=== PATIENT | male | born 1970 | race African-American/Black ===

== ENCOUNTER 2016-11-16 07:09 | Observation (INO) | payer OTHER ==
[2016-11-16] MEDS ORDERED: ASPIRIN 325 MG TABLET PO ONE (07:11)
[2016-11-16 07:28] LABS: BASOPHILS % 0.4 (0.0-1.5); EOSINOPHILS % 2.1 % (0.0-6.8); LYMPHOCYTES # 1.4 # k/uL (0.6-4.0); MONOCYTES # 0.4 # k/uL (0.0-0.9); MONOCYTES % 7.6 % (0.0-11.0); NEUTROPHILS # 3.1 # k/uL (1.4-7.7)
--- NOTE | 2016-11-16 07:29 | ED Physician Documentation ---
Chest Pain - HISTORIAN Historian: patient - HPI Chief Complaint: Chest Pain Additional Information: 46 yo M here for chest discomfort. States he has had SOB off and on for the last few days at work, woke up with central/L chest discomfort this morning, approximately 0630. Pain is described as ache without radiation, not worse with exertion. He has had chills but no fever to his knowledge. He has had a mild cough. No n/v diaphoresis. He is a diabetic, takes pills. No HTN/HLP, self cardiac history. He is a non smoker. His father had heart disease at "a young age." Pain on arrival is described as mild, maybe 1-2/10 and max was 3-4/10. All other systems reviewed and negative except per HPI. Timing: gradual onset Duration: constant Last known Well Date: 11/16/16 Last Known Well Time: 06:00 Severity: mild - ROS CONST: none MS/LYMPH: none GI/: none EYES/ENT: none SKIN/ENDO: none NEURO/PSYCH: none Comment: chest pain - PAST HX MD risk factors: diabetes Type 2 DVT/PE Risk Factors: none TAD/AAA risk factors: none Neuro deficit: none GI disease: none Lung disease: none Surgeries/Procedures: none Allergies/Adverse Reactions: Allergies Allergy/AdvReac Type Severity Reaction Status Date / Time No Known Drug Allergies Allergy Verified 11/16/16 07:32 - SOCIAL HX Smoking History: non-smoker Alcohol Use: none Drug Use: none - FAMILY HX Family HX: CAD under 55 - REVIEWED ASSESSMENTS Nursing Assessment Reviewed: Yes Vitals Reviewed: Yes ED Results Lab/Radiology - Radiology Radiology Impressions: EKG: NSR 71bpm, normal axis, normal intervals. No ST changes, no ectopy. 2v CXR: neg - Orders Orders: ED Orders Category Date Time Status CHEST 2 VIEW [CHEST P.A.&LAT 2 VIEWS] [RAD] Stat Exams 11/16/16 Ordered BMP [BMP] Routine Lab 11/16/16 07:25 Received CBC/PLATELET/DIFF Stat Lab 11/16/16 07:25 Received TROPONIN I (cTnI) Stat Lab 11/16/16 07:25 Received Aspirin Med 11/16/16 07:11 Discontinued 325 mg PO NOW ONE EKG WITH COMPARISON Stat Ther 11/16/16 Ordered Chest Pain Physical Exam - EXAM General Appearance: no acute distress EENT: ENT inspection normal, pharynx normal Neck: nml inspection. No: JVD present, lymphadenopathy Respiratory: no resp. distress, chest non-tender, nml breath sounds CVS: reg. rate & rhythm, no murmur, pulses equal Abdomen: soft, no organomegaly, normal bowel sounds, no distension, non-tender Skin: warm/dry, normal color Extremities: non-tender, no evidence of injury Neuro: oriented X3 Discharge Clincal Impression: Shortness of breath Chest pain Qualifiers: Chest pain type: unspecified Qualified Code(s): R07.9 - Chest pain, unspecified Comments: EKG no ischemia, trop and other labs neg. CXR normal. Given ASA on arrival, single sl nitro. Pain relieved with nitro x1. No recurrence of pain. Admitted for cardiac rule out. Condition: Good Disposition: ADMITTED INPATIENT Decision to Admit: [id number] Decision Time: 09:20
[2016-11-16 07:44] LABS: eGFR (African) > 60; eGFR (Non-African) > 60
[2016-11-16] MEDS ORDERED: NITROGLYCERIN 0.4 MG TAB.SUBL SL ONE (07:47)
[2016-11-16] MEDS ORDERED: NITROGLYCERIN 0.4 MG TAB.SUBL SL PRN (09:26)
[2016-11-16] MEDS: ENOXAPARIN SODIUM 30 MG/0.3 ML DISP.SYRIN SQ SCH ×2 (12:32→20:52)
[2016-11-16 13:02] VITALS: BMI 89.6
--- NOTE | 2016-11-16 14:32 | Diagnostic Imaging Report ---
JHONY SOUSA [facility] [address] [facility] [address] [address] Report Submission Date: Nov 16, 2016 7:43:39 AM SPOTLIGHT OPERATOR Patient Study Name: BRET SCHREIBER Date: Nov 16, 2016 7:24:05 AM SPOTLIGHT OPERATOR Modality Type: CR Gender: M Description: CHEST : 66 Institution: [facility] Physician: JHONY SOUSA HISTORY: 46-year-old male with chest pain COMPARISON: None available. TECHNIQUE: 2 views of the chest were performed. FINDINGS: No pneumothorax, consolidative infiltrates, pleural effusions, or pulmonary edema. The heart is not enlarged. IMPRESSION: No acute intrathoracic process identified. Electronically signed on Nov 16, 2016 7:43:39 AM SPOTLIGHT OPERATOR by: Nic JOVEL
--- NOTE | 2016-11-16 18:36 | History and Physical Report ---
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 He was seen in the ER and given a single nitroglycerin, and his chest pain has resolved. He has several risk factors for CAD including male sex, obesity, family history (father with ND in his 40s), diabetes and mild dyslipidemia (HDL of 32, LDL of 102, TG of 112). He does not smoke. He has no personal history of CAD and has never had any reason to have any testing for risk stratification done. He admits that he has been under quite a bit of stress having recently transferred from [facility] to [facility] where he says that work conditions are much more stressful and that he has personally felt quite a bit of stress. 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: Carpal Tunnel Syndrome Heme/Onc: Other (Vitamin D deficiency) Musculoskeletal: Osteoarthritis Endocrine: Diabetes, Other (obesity) - Past Surgical History Past Surgical History: Arthroscopy (left knee) - Past Social History Smoke: No Alcohol: Occassional Drugs: None Lives: With Family Domestic Violence: Negative - Health Maintenance Health Maintenance: Cholesterol Influenza Vaccine: Current for this Influenza Season Pneumonia Vaccine: Yes Resuscitation Status: Resusciation Status Resuscitation Status Full Code - Unable to Obtain History Unable to Obtain: No Review of Systems - Review of Systems Constitutional: negative: Fever, Chills, Sweats Eyes: negative: pain, vision change, conjunctivae inflammation ENT: negative: Ear Pain, Ear Discharge, Nose Pain Respiratory: negative: Cough, Dry, Shortness of Breath Cardiovascular: Chest Pain (as described in HPI) Gastrointestinal: negative: Nausea, Vomiting Genitourinary: negative: Dysuria, Frequency Musculoskeletal: negative: Neck Pain, Shoulder Pain, Arm Pain Skin: negative: Rash, Lesions Neurological: negative: Weakness, Numbness, Incoordination, Change in Speech - Medications/Allergies Allergies/Adverse Reactions: Allergies Allergy/AdvReac Type Severity Reaction Status Date / Time No Known Drug Allergies Allergy Verified 11/16/16 07:32 Current Inpatient Medications: Current Inpatient Medications Aspirin (Aspirin) 81 mg PO DAILY ONE Stop: 11/17/16 07:01 Enoxaparin Sodium (Lovenox) 30 mg SQ Q12H [facility] Stop: 11/22/16 23:00 Last Admin: 11/16/16 12:32 Dose: 30 mg Glimepiride (Amaryl) 2 mg PO DAILY [facility] Exam - Exam Vital Signs: Vital Signs (72 hours) 11/16/16 11/16/16 11/16/16 10:36 10:59 14:00 Temperature 97.5 F L 97.5 F L 98.4 F Pulse Rate [ 72 72 87 Left Pulse ox] Respiratory 16 16 18 Rate Blood Pressure 121/72 121/72 150/74 [Left Arm] O2 Sat by Pulse 97 97 98 Oximetry General: Alert, Oriented to Person, Oriented to Place, Oriented to Time, Obese HEENT: Atraumatic, PERRLA, EOMI, Mouth Mucous membr. moist/Arboles, Nose Mucous membr. moist/Arboles, Anicteric Sclerae. No: Photophobia, Ptosis Neck: No: Stridor Lungs: Clear to auscultation, Normal air movement, Speaks full Sentences, Respiratory Distress. No: Wheezes, Rales, Rhonchi Cardiovascular: Regular rate, Normal S1, Normal S2 Murmur: No: Systolic Murmur Abdomen: Normal bowel sounds, No tenderness, No masses Genitourinary: No: Right Inguinal Hernia, Left Inguinal Lymph Male Genitourinary: No: Scrotal Edema Female Genitourinary: No: Other Integumentary: Normal, Warm, Dry Extremities: No clubbing, No cyanosis, No edema Neurological: Normal gait, Normal speech, Strength Equal Bilat, Normal tone Psych/Mental Status: Mental status NL - Laboratory Results Laboratory Results: Laboratory Results 11/16/16 12:45 Troponin I < 0.03 L Assessment/Plan - Assessment/Plan (1) Chest pain Status: Acute Current Visit: Yes Qualifiers: Chest pain type: unspecified Qualified Code(s): R07.9 - Chest pain, unspecified Assessment: Resolved Plan: Continue serial cardiac enzymes Cardiology consult in the am (2) Shortness of breath Status: Acute Current Visit: Yes Assessment: Improved VTE Assessment - RISK FACTOR SCORE VTE RISK FACTOR SCORES: AGE 40-60 YEARS, OBESITY - RISK VTE MODERATE RISK: SCORE OF 2 (RISK PROXIMAL DVT 2-4%) PROPHYAXIS NEEDED (Will hold anticoagulation due to being in bed less than 24 hours)
[2016-11-16] MEDS: ACETAMINOPHEN 325 MG TABLET PO PRN (21:22)
[2016-11-17] MEDS ORDERED: ASPIRIN 81 MG CHEW TAB ONE ×2 (04:55→06:03)
[2016-11-17] MEDS ORDERED: ASPIRIN 325 MG TABLET PO ONE (07:00)
[2016-11-17 07:12] LABS: BASOPHILS % 0.5 (0.0-1.5); EOSINOPHILS % 1.4 % (0.0-6.8); LYMPHOCYTES # 1.4 # k/uL (0.6-4.0); MEAN CORPUSCULAR HEMOGLOBIN 28.1 pg (28.0-34.0); MONOCYTES # 0.5 # k/uL (0.0-0.9); MONOCYTES % 9.4 % (0.0-11.0); NEUTROPHILS # 2.9 # k/uL (1.4-7.7)
--- NOTE | 2016-11-17 08:04 | Inpatient Progress Note ---
Subjective - Required Recertification Statement I anticipate X number of days because-include discharge plan: 1 - Review of Systems Events since last encounter: Patient awoke yesterday with some substernal achy chest pain. No radiation of the pain. No precipitating or modifying factors noted. Pain lasted about 3 hours. Pain went away after getting one sl NTG. Has not had any previous episodes of chest pain. Patient states that he has developed a mild cold. is having some nasal congestion and drainage. No fever or chills. does have a mild nonproductive cough. Has been under a lot of stress recently. Feels that he might be having some depression problems. Has been having some increase fatigue and loss of interest in things, Denies any suicidal thoughts. Diabetes is stable. No hypo or hyperglycemic episodes. Pulmonary: Cough. Denies: Dyspnea, Pleuritic Chest Pain Cardiovascular: Denies: Chest Pain, Palpitations Gastrointestinal: Denies: Nausea, Vomiting, Abdominal Pain Objective - Exam Vitals and I&O: Vital Signs Temp 98.0 F 11/17/16 06:00 Pulse 79 11/17/16 06:00 Resp 20 11/17/16 06:00 BP 173/85 11/17/16 06:00 Pulse Ox 96 11/17/16 06:00 Intake & Output 11/16/16 11/16/16 11/17/16 11:59 23:59 11:59 Intake Total 1080 Output Total 450 Balance 630 Weight 300 kg Intake: IV 0 Right Hand 0 Oral 1080 Output: Urine 450 Other: Voiding Method Toilet # Voids 1 1 # Bowel Movements 1 General: Alert, Oriented to Person, Oriented to Place, Oriented to Time, Cooperative, No acute distress HEENT: Mouth Mucous membr. moist/Olivette. No: Pharyngeal Erythema Neck: Supple, No JVD Lungs: Clear to auscultation, Normal air movement, Speaks full Sentences. No: Wheezes, Rales, Rhonchi Cardiovascular: Regular rate, Normal S1, Normal S2, No murmurs. No: Gallops Abdomen: Normal bowel sounds, Soft, No tenderness - Results Results: Laboratory Results WBC 5.10 K/ul (4.00-12.00) 11/17/16 06:20 RBC 4.99 M/ul (3.90-5.20) 11/17/16 06:20 Hgb 14.0 g/dL (12.0-18.0) 11/17/16 06:20 Hct 42.0 % (37.0-53.0) 11/17/16 06:20 MCV 84.1 fl (80.0-100.0) 11/17/16 06:20 MCH 28.1 pg (28.0-34.0) 11/17/16 06:20 MCHC 33.3 g/dL (30.0-36.0) 11/17/16 06:20 RDW 13.7 % (11.3-14.3) 11/17/16 06:20 Plt Count 155 K/mm3 (130-400) 11/17/16 06:20 Neut % (Auto) 56.6 % (39.0-79.0) 11/17/16 06:20 Lymph % (Auto) 28.2 % (16.0-50.0) 11/17/16 06:20 Morgan % (Auto) 9.4 % (0.0-11.0) 11/17/16 06:20 Eos % (Auto) 1.4 % (0.0-6.8) 11/17/16 06:20 Baso % (Auto) 0.5 (0.0-1.5) 11/17/16 06:20 Neut # 2.9 # k/uL (1.4-7.7) 11/17/16 06:20 Lymph # 1.4 # k/uL (0.6-4.0) 11/17/16 06:20 Morgan # 0.5 # k/uL (0.0-0.9) 11/17/16 06:20 Eos # 0.1 # k/uL (0.0-0.6) 11/17/16 06:20 Baso # 0.0 # k/uL (0.0-0.5) 11/17/16 06:20 Reactive Lymphs % 3.9 % (0.0-5.0) 11/17/16 06:20 Reactive Lymphs # 0.2 # k/uL (0.0-0.8) 11/17/16 06:20 Sodium 139 mmol/L (136-145) 11/16/16 07:25 Potassium 3.4 mmol/L (3.5-5.0) L 11/16/16 07:25 Chloride 99 mmol/L (98-110) 11/16/16 07:25 Carbon Dioxide 30 mmol/L (20-32) 11/16/16 07:25 BUN 17 mg/dL (10-26) 11/16/16 07:25 Creatinine 1.1 mg/dL (0.4-1.5) 11/16/16 07:25 Estimated Creat Clear 160 11/16/16 07:25 Est GFR ( Amer) > 60 (60-) 11/16/16 07:25 Est GFR (Non-Af Amer) > 60 (60-) 11/16/16 07:25 Glucose 110 mg/dL (70-99) H 11/16/16 07:25 Calcium 9.5 mg/dL (8.5-10.5) 11/16/16 07:25 Troponin I < 0.03 ng/mL (0.03-0.06) L 11/17/16 06:20 Assessment/Plan - Assessment/Plan (1) Upper respiratory infection Status: Acute Current Visit: Yes Qualifiers: URI type: unspecified viral URI Qualified Code(s): J06.9 - Acute upper respiratory infection, unspecified; B97.89 - Other viral agents as the cause of diseases classified elsewhere Assessment: Will start Robitussin (2) Chest pain Status: Acute Current Visit: Yes Qualifiers: Chest pain type: unspecified Qualified Code(s): R07.9 - Chest pain, unspecified Assessment: stable, will try to get a cardiac stress ECHO and cardiac consult.
[2016-11-17] MEDS ORDERED: GLIMEPIRIDE 2 MG TABLET PO SCH (09:00)
[2016-11-17] MEDS: ENOXAPARIN SODIUM 30 MG/0.3 ML DISP.SYRIN SQ SCH (12:18)
[2016-11-17] MEDS: ACETAMINOPHEN 325 MG TABLET PO PRN (13:38)
[2016-11-17 13:50] VITALS: BP 148/78
[2016-11-17] MEDS ORDERED: ASPIRIN EC 81 MG TABLET.DR PO SCH (15:00)
[2016-11-17] MEDS ORDERED: LORATADINE 10 MG TABLET PO ONE ×2 (15:11→15:46)
--- NOTE | 2016-11-17 15:13 | Discharge Summary ---
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 He was seen in the ER and given a single nitroglycerin, and his chest pain has resolved. He has several risk factors for CAD including male sex, obesity, family history (father with SC in his 40s), diabetes and mild dyslipidemia (HDL of 32, LDL of 102, TG of 112). He does not smoke. He has no personal history of CAD and has never had any reason to have any testing for risk stratification done. He admits that he has been under quite a bit of stress having recently transferred from [facility] to [facility] where he says that work conditions are much more stressful and that he has personally felt quite a bit of stress. Condition at Discharge: Stable Home Medications: Ambulatory Orders Medication Instructions Recorded Aspirin EC [Ecotrin] 81 mg PO DAILY tablet. 11/17/16 Azithromycin [Zithromax] 250 mg PO DIRECTED #6 tablet 11/17/16 Glimepiride [Amaryl] 2 mg PO DAILY tablet 11/17/16 Allergies/Adverse Reactions: Allergies Allergy/AdvReac Type Severity Reaction Status Date / Time No Known Drug Allergies Allergy Verified 11/16/16 07:32 Discharge Summary: Patient was admitted with some chest pain. Acute ischemic event ruled out. Serial EKGs and cardiac enzymes were negative. Patient did have some mild chest pain during the hospitalization. Resolved without any intervention. Patient was noted to have an elevated A1c consistent with developing DM. Patient was advised to try to decrease the sugar and carbohydrates in his diet. - Final Diagnosis (1) Upper respiratory infection Problems: Improved (2) Chest pain Problems: Will get a cardiac consultation
[2016-11-17] MEDS ORDERED: ASPIRIN EC 325 MG TABLET.DR ONE (15:32)
[2016-11-17] MEDS ORDERED: ASPIRIN EC 81 MG TABLET.DR ONE (15:35)
== END 2016-11-17 17:25 | disposition home or self-care (01) ==
LOC: ED 07:09 → SOUTH 10:12
PROVIDERS: ADMIT Family Medicine; ATTEND Family Medicine
DX: R07.9 Chest pain, unspecified (principal); J06.9 Acute upper respiratory infection, unspecified
CPT/HCPCS: 36415; 71020; 80048; 83036; 84484; 85025; 93005; A9270; G0378; J1650; S1016

== ENCOUNTER 2017-03-16 11:16 | Outpatient (CLI) | payer OTHER ==
[2017-03-16 11:59] LABS: eGFR (African) > 60; eGFR (Non-African) > 60
== END 2017-03-16 12:40 ==
LOC: LAB 11:16
PROVIDERS: ATTEND Physician Assistant
DX: E11.9 Type 2 diabetes mellitus without complications (principal); H53.9 Unspecified visual disturbance
CPT/HCPCS: 36415; 80053; 83036

== ENCOUNTER 2018-03-25 09:41 | Outpatient (CLI) | payer OTHER ==
[2018-03-25 10:23] LABS: eGFR (African) > 60; eGFR (Non-African) > 60
== END 2018-03-25 09:43 ==
LOC: LAB 09:41
PROVIDERS: ATTEND Physician Assistant
DX: E11.9 Type 2 diabetes mellitus without complications (principal); E78.5 Hyperlipidemia, unspecified; R07.9 Chest pain, unspecified
CPT/HCPCS: 36415; 80053; 80061; 83036; 84484

== ENCOUNTER 2018-05-20 13:43 | Outpatient (CLI) | payer OTHER ==
--- NOTE | 2018-05-20 19:45 | Diagnostic Imaging Report ---
MITCH TAYLOR [facility] [address] [facility] [address] [address] Report Submission Date: May 20, 2018 2:05:28 PM CDT Patient Study Name: BRET SCHREIBER Date: May 20, 2018 1:45:50 PM CDT Modality Type: DX Gender: M Description: SHOULDER : 66 Institution: [facility] Physician: MITCH TAYLOR Examination: Plain film right shoulder History: RT SHOULDER, PAIN IN RT SHOULDER AFTER LIFTING INJURY ON 04/27/18 (Hx) Comparison exams: None provided Findings: 3 views of the right shoulder demonstrate normal cortical margins. No evidence for fracture or dislocation. Mild acromioclavicular joint degenerative spurring. No soft tissue abnormality Impression: No acute osseous process. If suspect soft tissue injury, consider obtaining MRI to further evaluate. Electronically signed on May 20, 2018 2:05:28 PM CDT by: Everette JOVEL
== END 2018-05-20 14:25 ==
LOC: RAD 13:43
PROVIDERS: ATTEND Physician Assistant
DX: M25.511 Pain in right shoulder (principal)
CPT/HCPCS: 73030

== ENCOUNTER 2018-09-15 14:32 | Outpatient (CLI) | payer OTHER ==
[2018-09-15 15:23] LABS: MEAN CORPUSCULAR HEMOGLOBIN 26.4 pg (28.0-34.0)
[2018-09-15 15:24] LABS: BASOPHILS % 0.4 (0.0-1.5); EOSINOPHILS % 8.1 % (0.0-6.8); MONOCYTES % 4.7 % (0.0-11.0)
[2018-09-15 15:41] LABS: eGFR (Non-African) > 60
--- NOTE | 2018-09-16 05:38 | Diagnostic Imaging Report ---
MITCH TAYLOR [facility] [address] [facility] [address] [address] Report Submission Date: Sep 15, 2018 3:54:50 PM WINDLACE MACHINE OPERATOR Patient Study Name: BRET SCHREIBER Date: Sep 15, 2018 3:03:45 PM WINDLACE MACHINE OPERATOR Modality Type: DX Gender: M Description: CHEST : 66 Institution: [facility] Physician: MITCH TAYLOR Examination: PA and lateral chest. History: Evaluate lung crum. CHEST PAIN X WEEKS (Hx) Comparison exam: None provided. Findings: PA and lateral views of the chest demonstrates a normal cardiac and mediastinal silhouette. No focal infiltrate. No blunting of the costophrenic margins. Osseous structures are appropriate for age. Impression: No acute pulmonary process. Electronically signed on Sep 15, 2018 3:54:50 PM WINDLACE MACHINE OPERATOR by: Everette JOVEL
== END 2018-09-15 14:42 | disposition home or self-care (01) ==
LOC: RT 14:32
PROVIDERS: ATTEND Physician Assistant
DX: R07.9 Chest pain, unspecified (principal); R06.02 Shortness of breath
CPT/HCPCS: 36415; 71046; 80053; 84484; 85025

== ENCOUNTER 2019-02-09 14:10 | Outpatient (CLI) | payer OTHER ==
--- NOTE | 2019-02-09 18:14 | Diagnostic Imaging Report ---
AKIL HENSLEY [facility] [address] [facility] [address] [address] Report Submission Date: February 09, 2019 2:40:32 PM CDT Patient Study Name: BRET SCHREIBER Date: February 09, 2019 2:16:45 PM CDT Modality Type: DX Gender: M Description: ANKLE 3 VIEWS OR MORE : 66 Institution: [facility] Physician: AKIL HENSLEY EXAMINATION: ANKLE 3 VIEWS OR MORE HISTORY: LEFT ANKLE, PAIN IN LEFT ANKLE AFTER SPORTS INJURY ABOUT 2 WEEKS AGO. PT STATES WORST PAIN IN HEEL AREA COMPARISON: None FINDINGS: The osseous structures are intact and well aligned without acute fracture or dislocation. The joint spaces are preserved. Bone density is normal. No soft tissue swelling is seen. There is a posterior calcaneal spur. IMPRESSION: Calcaneal spur without acute fracture or dislocation identified. Electronically signed on February 09, 2019 2:40:32 PM CDT by: Valentino JOVEL
--- NOTE | 2019-02-09 18:15 | Diagnostic Imaging Report ---
AKIL HENSLEY [facility] [address] [facility] [address] [address] Report Submission Date: February 09, 2019 2:41:19 PM CDT Patient Study Name: BRET SCHREIBER Date: February 09, 2019 2:16:45 PM CDT Modality Type: DX Gender: M Description: FOOT 3 VIEWS OR MORE : 66 Institution: [facility] Physician: AKIL HENSLEY EXAMINATION: FOOT 3 VIEWS OR MORE HISTORY: LEFT FOOT, PAIN IN LEFT FOOT AFTER SPORTS INJURY ABOUT 2 WEEKS AGO. PT STATES WORST PAIN IN HEEL AREA COMPARISON: None FINDINGS: The osseous structures are intact and well aligned without acute fracture or dislocation. The joint spaces are preserved. Bone density is normal. No soft tissue swelling is seen. There is a posterior calcaneal spur. There is an os peroneum. IMPRESSION: No acute fracture or dislocation identified. Electronically signed on February 09, 2019 2:41:19 PM CDT by: Valentino JOVEL
== END 2019-02-09 14:12 ==
LOC: RAD 14:10
PROVIDERS: ATTEND Nurse Practitioner Family
DX: M77.32 Calcaneal spur, left foot (principal); M25.572 Pain in left ankle and joints of left foot
CPT/HCPCS: 73610; 73630

== ENCOUNTER 2019-03-09 09:13 | Outpatient (CLI) | payer OTHER | END 2019-03-09 09:50 | LOC: POD 09:13 | PROVIDERS: ATTEND Podiatrist Foot & Ankle Surgery | DX: S86.012A Strain of left Achilles tendon, initial encounter (principal); S92.015A Nondisplaced fracture of body of left calcaneus, initial encounter for closed fracture; X50.9XXA Other and unspecified overexertion or strenuous movements or postures, initial encounter | CPT/HCPCS: 99213 ==

== ENCOUNTER 2019-03-16 13:24 | Outpatient (CLI) | payer OTHER | END 2019-03-16 14:10 | LOC: POD 13:24 | PROVIDERS: ATTEND Podiatrist Foot & Ankle Surgery | DX: S86.012A Strain of left Achilles tendon, initial encounter (principal); M77.32 Calcaneal spur, left foot; M21.6X2 Other acquired deformities of left foot; E11.9 Type 2 diabetes mellitus without complications; X50.9XXA Other and unspecified overexertion or strenuous movements or postures, initial encounter | CPT/HCPCS: 99213 ==

== ENCOUNTER 2019-03-29 07:26 | Day surgery (SDC) | payer OTHER ==
[2019-03-29] MEDS ORDERED: SEVOFLURANE 250 ML LIQUID IH ONE (08:48)
[2019-03-29] MEDS ORDERED: fentaNYL CITRATE/PF 100 MCG/2 ML INJ. ONE (08:48)
[2019-03-29] MEDS ORDERED: ROPIVACAINE 0.5% IJ ONE (08:48)
[2019-03-29] MEDS ORDERED: MIDAZOLAM HCL 2 MG/2 ML VIAL ONE (08:48)
[2019-03-29] MEDS ORDERED: FAMOTIDINE 20 MG/2 ML VIAL IV ONE (08:48)
[2019-03-29] MEDS ORDERED: SUGAMMADEX SODIUM 200 MG/2 ML VIAL IV ONE (08:48)
[2019-03-29] MEDS ORDERED: BUPIVACAINE HCL 0.25% (2.5MG/ML) PF 30 ML VIAL IJ ONE (08:48)
[2019-03-29] MEDS ORDERED: ROCURONIUM BROMIDE 10 MG/ML 5ML VIAL ONE (08:48)
[2019-03-29] MEDS ORDERED: ePHEDrine SULFATE 50 MG/1 ML IVP ONE (08:48)
[2019-03-29] MEDS ORDERED: ONDANSETRON HCL/PF 4 MG/ 2ML VIAL ONE (08:48)
[2019-03-29] MEDS ORDERED: ceFAZolin SODIUM 1 GM VIAL ONE (08:48)
[2019-03-29] MEDS ORDERED: MORPHINE SULFATE 10 MG/ML VIAL ONE (08:48)
[2019-03-29] MEDS ORDERED: LACTATED RINGERS 1,000 ML IV.SOLN IV ONE (08:48)
[2019-03-29] MEDS ORDERED: PROPOFOL 200 MG/20 ML VIAL IV ONE (08:48)
[2019-03-29] MEDS ORDERED: DEXAMETHASONE SODIUM PHOSPHATE 10 MG/ML VIAL ONE (08:48)
[2019-03-29] MEDS ORDERED: LIDOCAINE HCL 2% PF 100MG/5ML VIAL IJ ONE (08:48)
[2019-03-29] MEDS ORDERED: HYDROcodone /APAP 5/325 1 EACH TABLET ONE (13:47)
--- NOTE | 2019-03-31 14:15 | Operative Note ---
PROCEDURE DATE: 03/29/2019 PREOPERATIVE DIAGNOSES: 1. Left gastrocnemius equinus. 2. Left painful Haglunds deformity. 3. Left Achilles tendon insertional tear. POSTOPERATIVE DIAGNOSES: 1. Left gastrocnemius equinus. 2. Left painful Haglunds deformity. 3. Left Achilles tendon insertional tear. PROCEDURE PERFORMED: 1. Left endoscopic Pamela gastrocnemius recession. 2. Left retrocalcaneal exostectomy with Achilles detach and reattach with SpeedBridge and Achilles tear repair. SURGEON: Dani Clark D.P.M. ASSISTANTS: None. ANESTHESIA: General endotracheal anesthesia with popliteal block and intraoperative saphenous block with local. HEMOSTASIS: Left thigh tourniquet. ESTIMATED BLOOD LOSS: About 20 mL. MATERIALS USED: Four of the 4.75 SwiveLock anchors from [employer] (19 mm length) and suture tape. INJECTABLES: Intraoperative 20 mL of 0.25% Marcaine plain injected in the saphenous nerve region in the lower leg of the left lower extremity. COMPLICATIONS: None. INDICATIONS FOR PROCEDURE: Stanley Bland is a 48-year-old male who presented to clinic awhile back for left posterior heel pain that started while running bases in softball. He admitted pain in the Achilles tendon insertional area. X-rays demonstrated a retrocalcaneal exostosis and due to continued pain despite conservative treatment an MRI was obtained and found that he had an insertional Achilles tear with possible small fracture at the site of the insertion which was difficult to really visualize on the MRI. He also had the retrocalcaneal exostosis and some marrow edema where the insertion was into the calcaneus. The patient also had some mild peritendinitis around the flexor tendons and the peroneal tendons without any sort of discrete tear. There was also a small bone spur underneath the calcaneus and posterior to the calcaneus. There was also pre Achilles bursitis noted. Due to the patient not improving with a heel lift and then later an Orthoboot with a heel lift, etc. the patient determined with me that it was time to go forward with surgery as this was not getting any better with immobilization as it should. The patient also upon clinical exam had a notable gastrocnemius equinus which was likely a very strong root cause of the pain and problems in the tightness of the Achilles and the tendinosis that was demonstrated on the MRI. The patient and I had a long discussion regarding the risks and benefits of surgery for a left gastrocnemius recession as well as a left retrocalcaneal exostectomy with Achilles detach and reattach with SpeedBridge and Achilles tendon repair, and the patient and I discussed the risks and benefits that include but are not limited to bleeding, infection, undercorrection, overcorrection, at least 3 month recovery, the need for non-weightbearing for likely 4-8 weeks and then transitioning into a boot for an additional 4-6 weeks where he likely will be able to weight bear in that boot and likely can go to work depending on how well he heals his incision. We also discussed numbness and burning and tingling that can last a long time, loss of limb and loss of life, infection. The patient understood these risks and benefits and agreed to go forward with the above-described surgery at this time. Consent was signed and placed in the chart. An extensive History and Physical was performed and the EKG and lab work was done and the EKG demonstrated some abnormal findings which required further review by buffet waiter/waitress which was done, and the patient was cleared for surgery officially as of yesterday, 03/28/19, in the afternoon. The patient was notified everything was good to go and he presented today for surgery. No guarantees were given or implied regarding the procedure at this time. PROCEDURE IN DETAIL: The patient was brought to the preoperative area today and the operative site was marked with an indelible pen. Under mild sedation the patient had a popliteal block performed and the patient was brought to the operating room. He first had general endotracheal anesthesia obtained and then was flipped onto the table in the prone position with all things appropriately padded and checked. His groin was checked to make sure that it was not in an impinged position and all areas were padded appropriately. The patients leg was shaved appropriately where needed in the lower leg portion of the left lower extremity. This was then scrubbed, prepped and draped in the usual aseptic fashion. A tourniquet prior to this was applied with appropriate padding at the left thigh. At this time a time-out was called and all present on the operating room team were in agreement on the patients name, location and planned procedure. At this time the left lower leg was exsanguinated with an Esmarch bandage up to the level of the knee and with the knee bent and the leg elevated to drain the blood out the leg inside the tourniquet was inflated to 300 mmHg. At this time a small 1.5 cm longitudinal incision was carried out approximately 2 to 2.5 cm distal to the medial gastroc muscle belly posteriorly and medially. This was carried out just medial to where the band of the aponeurosis would be. The incision was then carried out through the skin and carefully through the subcutaneous tissue and through the crural fascia. At this time blunt dissection with a blunt trochar in the cannula was performed moving across easily through the posterior aspect of the leg underneath the crural fascia. An incision was made on the lateral aspect of the leg which then allowed the blunt trochar and cannula to exit the lateral aspect of the posterior left leg. At this time Q- tips were utilized to help increase visualization on the scope. The scope was then inserted and checked to make sure we were in the appropriate position. An attempt was made to improve the position slightly underneath the tissue layer immediately on top of the aponeurosis. At this time it was visualized that we were sitting right on the aponeurosis with a very slight tissue layer but we could see the aponeurosis through it. There was no nerve visualized in this area. We flipped the scope to look on the other side posteriorly in the tunnel and did not see the sural nerve as we hoped to. We were confident there was no sural nerve in the area we were working as we did not see it anywhere on the scope looking at the aponeurosis. The rasp was utilized to clean up the slight tissue layer over the aponeurosis and Q-Tips were used to clean the visual area again. At this time now that we could see well the aponeurosis white and shiny we were able to insert the cutter that goes through the canal and we were able to release the aponeurosis beginning skilled nursing and extending laterally and then switching and doing skilled nursing, extending medially with the scope on the other side this time. This was confirmed with the scope that we released the aponeurosis all the way across carefully and safely. These pictures were taken to demonstrate that all was released and one could see red muscle belly underneath. The patient was held in some dorsiflexion during this release and it was checked and tested afterward and found to have improved ankle joint range of motion to about 10 degrees ankle joint motion whereas he was barely able to get to 0 degrees prior to the release which was checked prior to that release in surgery today. The scope and instrumentation was removed and the site was flushed with a copious amount of normal saline. At this time 3-0 Vicryl was utilized to close the subcutaneous tissue layer on medial and lateral small incisions and then 3-0 nylon was utilized to close the skin incision on medial and lateral sides with horizontal interrupted suture fashion and simple interrupted suture fashion. At this time attention was then moved and directed to the posterior heel where an S-type incision that began longitudinal approximately 6-8 cm proximal to the Achilles tendon insertion just medial to midline was carried out distally and then an S-type continuation was done crossing over the tendons slightly and then more in a distal direction longitudinally again near the distal aspect posterior heel area. This incision was carried down through the skin into the subcutaneous tissue with care to avoid neurovascular structures. Electrocautery was utilized as needed. We were able to get down to the tendon carefully and safely. The peritoneum was then incised and reflected. It was immediately visualized that there was a very small tear in the distal Achilles tendon centrally near the insertion as mentioned on the MRI. At this time. A longitudinal incision was carried out through the distal approximately 4 cm of the Achilles tendon down to the insertion. The central aspect of the Achilles tendon at the insertion was then reflected medially and laterally leaving the most medial and lateral aspects of the Achilles tendon intact on the bone. At this time osteotomes and a mallet were utilized to resect the osseous bump posteriorly. This was able to be done to remove the calcaneal spurring posteriorly as well as the Haglunds deformity more proximally on the posterior calcaneus. C-arm was utilized to confirm that this was done adequately and appropriately. At this time a bone rasp and a rongeur were utilized to clean out the bone to prepare it to be smooth and slightly bone rasped in order to increase the likelihood of the tendon to tack down to the bone again over time. At this time after having resected the posterior calcaneal spurring and Haglunds deformity and sending that for specimen for pathology, attention was directed to drilling the 4 holes for the 4.75 SwiveLoc anchors. These holes were drilled with a 3.4 drill and then tapped and then the SpeedBridge was performed per authorization representative instructions, who was in the room. The proximal holes were drilled, tapped and SwiveLoc anchors applied. The suture was then passed through about 1 cm proximal to the insertion and then the SpeedBridge technique was employed. These were tightened appropriately and we had a good strong construct upon completion. At the very end we were able to then apply suture tape to repair the Achilles tendon central portion. It should be noted that prior to repairing the Achilles tendon central portion we were able to cut out the small amount of diseased Achilles tendon where scar tissue had formed. This was removed appropriately and a very mild amount was removed totaling perhaps 5% of that distal aspect of the Achilles tendon. At this time the pre Achilles bursa that was inflamed was also removed with a rongeur. The site was flushed with a copious amount of normal saline. Those couple steps were done just prior to tacking down the Achilles tendon with the SpeedBridge technique. After having the SpeedBridge down and the Achilles tendon central repair done with a suture tape appropriately, and grabbing one portion of the suture in the SpeedBridge area that seems slightly loose and tightening it some by incorporating it into the closure of the Achilles tendon we were able to obtain a pretty good construct. The site was then flushed with a copious amount of normal saline. At this time we were able to begin closure consisting of 4-0 Vicryl closure of the para Tenon in a running stitch. We obtained good closure over the suture there. We then were able to perform subcutaneous closure with 3-0 Vicryl and then skin closure with 3-0 nylon in a combination of simple interrupted and horizontal interrupted suture mattress fashion. We obtained good closure with good approximation without strangulation. The skin incision came together very nice. It should be noted that the saphenous block mentioned was actually performed at the end of the procedure more to augment and help for postoperative pain rather than doing it at the beginning of the procedure. 20 mL of 0.25% Marcaine plain were injected in the saphenous nerve area and just near the gastroc recession incision sites and the proximal end of the Achilles incision. Dressings were then applied consisting of a water activated zinc dressing from [employer] that came in the set according to the [employer] authorization representative that was placed on all the incision sites. These were then covered in 4x4 gauze, ABD pads and Kerlix. It should be noted that prior to application of dressings and prior to final closure we were able to release the tourniquet and a prompt hyperemic response was noted to all the toes of the left foot. There was some bleeding which was controlled with pressure and closure of the wound. Dressings were applied as described above. A copious amount of padding and a 4x30 posterior mold splint was then applied appropriately and covered in 2 Nahid wraps. The ankle was held at 90 degrees appropriately as were able to do a gastroc recession and get him to good ankle dorsiflexion. Normally, it is left in a plantar flexed position but due to the gastroc recession we were able to advance him to 90 degrees in the splint at the ankle. The patient was emerged from general endotracheal anesthesia at this time and flipped back into supine position and transferred to recovery, vital signs stable and vascular status intact to all the toes of the left foot. The patients was spoken to as well as him after surgery and all instructions for postop care were given as well as prescription for aspirin 81 mg daily as well as [place] 5/325 mg #42 to be taken 1 every 4 to 6 hours as needed for pain. He was given a weeks worth. He is to ice behind the knee 20 minutes every hour or 2 while awake and is to elevate the left lower extremity above the heart at all times and is to leave the dressings clean, dry and intact. We will plan on seeing the patient on Wednesday as Wednesday is a little too full at this point in time. We will see him on Wednesday at 2:30 p.m. for his first surgical follow-up. He is to notify me of any problems in the meantime or go to the ER if there is any concerns. The patient nor his had any questions or concerns before or after surgery that were not answered. We will notify the patient of the specimen results as soon as we can that was sent today. Postop films were taken prior to application of the posterior mold splint today. Everything appeared to be in a good position and with good range of motion and we could slightly see where the anchors were placed. They all held tight and felt very strong when applied today. There were no other questions or concerns and we will see the patient for follow-up on Wednesday. The patient was sent with appropriate pain prescription and the aspirin and encouraged to being those. Jerrell FRAIRE JOB#: [id number] MTDD
== END 2019-03-29 14:35 | disposition home or self-care (01) ==
LOC: OPSURG 07:26
PROVIDERS: ATTEND Podiatrist Foot & Ankle Surgery
DX: S86.012A Strain of left Achilles tendon, initial encounter (principal); M77.32 Calcaneal spur, left foot; M21.862 Other specified acquired deformities of left lower leg; M62.89 Other specified disorders of muscle
CPT/HCPCS: 27650; 28119; 29999; C1713; J0690; J2001; J2250; J2270; J2405; J2704; J3010; A9270-GY; J7120

== ENCOUNTER 2019-04-04 13:49 | Outpatient (CLI) | payer OTHER ==
--- NOTE | 2019-04-05 11:48 | OP Clinic Progress Note ---
DATE OF VISIT: 04/04/2019 NOTE: This is the patients first postoperative visit in his global period. SUBJECTIVE: Stanley BlandJr., is a 48-year-old male presenting for his first follow-up status post surgery performed on 03/29/19 for a left Achilles tendon tear repair with left retrocalcaneal exostectomy with Achilles tendon detach and reattach. The patient had surgery on 03/29/19. He states he is doing very well and has been doing well with icing behind the knee and elevating the left leg frequently. We will call tomorrow to make sure he is taking his aspirin as prescribed on the medication after surgery, a baby aspirin once daily. We did not ask him that today. The patient admits that he got some urine on his dressings and therefore it was all completely changed today. The urine got on the dressings yesterday. He also complains that he is having a hard time getting any cleaning done at the home and requests aid services from home health to come and help him as he does not have the help he needs at home. He is hoping someone can come twice a week to help. He is having a hard time keeping things clean and taking care of himself without good help at home right now. The patient has people at home I believe, but they are not helping. An order was written for this. The patient does not admit to any fevers, chills, nausea, vomiting, shortness of breath or chest pain at this time. OBJECTIVE: Vitals: Temperature 97.2 degrees Fahrenheit, heart rate 92, respiration rate 18, blood pressure 136/86. O2 saturation is 97% on room air. Vascular: 2+ DP and PT pulses, left foot. Capillary refill time is less than 3 seconds to the toes of the left foot. There is very mild edema noted in the posterior heel of the left foot. Dermatologic: The skin incisions posterior ankle as well as the 2 for the gastroc recession have incisions well coapted without any strangulation and without any evidence of necrosis or discoloration that is concerning. There is no erythema or drainage of any kind. There is no malodor, warmth or purulence noted. Everything appears to be healing well. There is no evidence of dehiscence in any of the 3 incisions. There was very minimal bleeding noted in the dressings today and it is dry. Musculoskeletal: There is very mild pain on palpation near the surgical site at all 3 incisions. There is mild pain with slight dorsiflexion to get the patient to neutral again. This is slightly uncomfortable for the patient. This is typical, however. We are able to get the patient to neutral at this time without very much discomfort to the patient. There are no gross abnormalities noted, left foot or leg. Everything appears to be doing very well. Neurologic: Light touch sensation is intact to the toes, left foot. The patient did complain of some tingling occasionally in the bottoms of the toes which is normal at this time. ASSESSMENT AND PLAN: Postop left retrocalcaneal exostectomy with Achilles detach and reattach with Achilles tendon repair. The patient had dressings changed today and a new posterior mold splint was applied with a copious amount of cast padding underneath. These were all changed as the patient states that yesterday he had issues with getting to the bathroom in time and had some urine going down his leg to his posterior mold splint. Due to this we felt it was necessary to change this today for sure, and with all new dressings. The patient was encouraged to not wait next time and to let me know immediately if anything like that happens again so we can take care of it and limit the risk of infection. The patient understands and agrees. Return to the clinic in 1 week. At that time we will cast the patient and potentially remove some of the stitches depending on how he is looking especially proximal to incisions and the proximal end of the posterior heel incision. We will at that time plan on casting the patient for 1 or 2 weeks and then we will remove the sutures at that time and transition into a boot and begin slow transition from non-weightbearing to weight-bearing in a boot over the next 3-4 weeks at that time in the boot. We will begin some range of motion exercises and then at 3 months total we dayne begin some aggressive physical therapy. Silvia CostaPDominguez. (Dictated/Not Signed) Joie Job#: [id number] MTDD
== END 2019-04-04 14:20 ==
LOC: POD 13:49
PROVIDERS: ATTEND Podiatrist Foot & Ankle Surgery
DX: Z48.89 Encounter for other specified surgical aftercare (principal)
CPT/HCPCS: 99213

== ENCOUNTER 2019-05-01 15:17 | Outpatient (CLI) | payer OTHER ==
--- NOTE | 2019-05-05 10:59 | OP Clinic Progress Note ---
DATE OF VISIT: 05/01/2019 SUBJECTIVE: Stanley BlandJr., is a 49-year-old male presenting to the clinic for follow-up /postop care after surgery that was performed on 03/29/19. That surgery consisted of a retrocalcaneal exostectomy with Achilles detach and reattach and repair as well as a gastrocnemius recession of the left lower extremity. The patient has been in a cast since shortly after surgery. The patient recently unfortunately went to the hospital at [facility] for some pains he was having in his chest and was diagnosed with 2 blood clots in the lungs. The patient was treated there and was just discharged. The patient had been on aspirin therapy, very low dose, at 81 mg daily after surgery to try to provide some DVT prophylaxis. Unfortunately, the patient still developed blood clots that were of concern. The patient is on appropriate medication at this time for that through the hospital. The patient presented at this time for follow-up of the left lower leg surgery. He does not admit to any other issues and is feeling great and in good spirits at this time. He does not admit to any fevers, chills, nausea, vomiting, shortness of breath or chest pain at this time. He is excited to get the cast off and to move forward with progressing in his recovery. OBJECTIVE: Vitals: Temperature 97.4, heart rate 88, respiration rate 20, blood pressure 142/79. O2 saturation is 96% on room air. Dermatologic: The patient has the skin incisions still well coapted without strangulation. The remaining sutures were removed today leaving of course small suture holes, but otherwise the skin is healing well. There is no purulence, malodor or erythema noted. There is no ecchymosis noted. There is no warmth or any signs of infection noted on the left lower leg areas at either the posterior Achilles incision site nor the gastrocnemius 2 incision sites. Musculoskeletal: There is very mild pain on palpation noted at the insertion site of the Achilles tendon still. There is still very mild pain with ankle dorsiflexion with the knee extended. The patient is able to get to 90 degrees, however, of dorsiflexion at this time. The patient has no other gross abnormalities noted in the left foot or leg. Neurologic: Light touch sensation is intact to the toes, left foot. There is no noted tingling or numbness. ASSESSMENT AND PLAN: 1. Postop care (date of surgery 03/29/2019: Left retrocalcaneal exostectomy with Achilles tendon detach and reattach with Achilles tendon repair and left gastrocnemius recession with endoscope). This patient is still in his global period and therefore this is not an appointment he is being charged for. This is all included in his surgery. PROCEDURE #1: A below knee cast was removed from the left lower extremity at this time without incident. Dressings of 4x4 gauze, Kerlix and an Nahid wrap x2 were applied to the left lower leg. It should be noted that SurePrep and Steri-Strips were also applied to the incision site on the posterior heel just to help protect it a little bit longer after removing the stitches today. The dressings were then applied as described above. The patient was placed in a tall Orthoboot today. The patient demonstrated for us after we showed him, how he is to be walking with virtually non-weightbearing to the left lower extremity initially using a walker and progressing towards full weight-bearing in the next week and a half or so. The patient I believe is ready to begin doing a little bit of weight-bearing in the boot. He knows he needs to wear the boot at all times. The patient had a heel lift placed in the boot with 1 of the 3 layers removed so that it is not helping lift his heel nearly as much but this will protect his Achilles tendon as it is still slightly sore with putting it at 90 degrees at the ankle. We will plan on seeing the patient back in 1-1/2 weeks. We will see him on a 05/10/19. The plan at that time will be to begin physical therapy 3 times a week with passive range of motion at that visit in order to start getting some good range of motion for him. After a couple weeks of that we will hopefully get him into more active range of motion and depending on how well he is doing with passive range of motion for a couple weeks. Again, next visit we will begin passive range of motion, physical therapy, and progress to active once he is seeming a bit stronger. This will all be based upon his clinical presentation as well. The patient has no further questions or concerns and we will see him next week on Wednesday. Dani Clark D.P.M. (Dictated/Not Signed) Joie Job#: [id number] MTDVentura
== END 2019-05-01 15:50 ==
LOC: POD 15:17
PROVIDERS: ATTEND Podiatrist Foot & Ankle Surgery
DX: Z48.89 Encounter for other specified surgical aftercare (principal)

== ENCOUNTER 2019-05-10 14:00 | Outpatient (CLI) | payer OTHER ==
--- NOTE | 2019-05-14 12:26 | OP Clinic Progress Note ---
DATE OF VISIT: 05/10/2019 SUBJECTIVE: Stanley BlandJr., is a 49-year-old male presenting to the clinic for follow-up today postop care since his surgery on 03/29/19 for being status post left retrocalcaneal exostectomy with Achilles tendon detach and reattach with Achilles tendon repair with gastrocnemius recession with endoscope. The patient states he is doing great and has very little pain if any noted. He has been able to progress to full weight-bearing in the boot with a walker. The patient is ready to go back to work at this time and has paperwork we need to fill out. He does not admit to any fevers, chills, nausea, vomiting, shortness of breath or chest pain. OBJECTIVE: Vitals: Temperature 98.1, heart rate 67, respiration rate 18, blood pressure 145/89. O2 saturation is 98% on room air. Vascular: Palpable DP and PT pulses, left foot. Capillary refill time is less than 3 seconds to the toes of the left foot. There is no edema noted, left foot. Dermatologic: The patient has Steri-Strips that were beginning to fall off that were removed today revealing a very well healed skin incision except for a small pencil point size open spot in the distal aspect of the posterior heel ulcer. The medial and lateral gastroc recession ulcers are also healed perfectly. There is no erythema, purulence or malodor noted. There is no sign of infection or warmth noted. Musculoskeletal: There is very mild pain to palpation noted distally at the insertion of the Achilles. There is no pain along the Achilles tendon any more. The patient has good range of motion to 90 degrees appropriately and this does not cause pain at this time as it did last time. Neurologic: Light touch sensation is intact to the toes, left foot. There is no tingling or numbness noted. ASSESSMENT AND PLAN: 1. Postop care (date of surgery 03/29/2019: Left retrocalcaneal exostectomy with Achilles tendon detach and reattach with Achilles tendon repair and left gastrocnemius recession with endoscope). A small portion of the second layer of the 3-layer wedge that was placed in his boot was removed today as he is doing great and we are progressing him to getting to where he does not have a wedge in his boot. The patient is ready for physical therapy. A prescription for physical therapy beginning with passive range of motion and progressing to active range of motion with an evaluation and treat authorization was given for physical therapy likely 2 or 3 times a week. The patient will get that started this week as he has already called to get that scheduled. The patient will work towards becoming full weight-bearing in the boot this next week and without the walker. The patient feels he is ready and safe to do so. Dressings were applied today consisting of Betadine-soaked gauze, Kerlix and 2 layers of 4-inch Nahid wrap. The patient knows to leave these dressings intact for 1 week and that he may then change them by applying a lightly soaked 4x4 gauze with Betadine and then wrapping it with the Nahid wraps as we did today. He does not need Kerlix at that time. We will see the patient in 2 weeks for follow-up and follow up on the physical therapy as well as how he is doing. The patient knows we are being careful and he is not to let his foot get wet yet as he still has a small open lesion. The site has healed beautifully overall and we will see if we can give him privileges to allow it to get wet, shower, etc at the next visit in 2 weeks. The patient knows that he is not to use a brace when he asked about this. He is to use the boot only at all times weight-bearing. The patient may require an ankle brace later on for stability once we get out of the boot but we will decide this based on his assessment in physical therapy. Paperwork was filled out for his work and sent with him and we will fax the second set of paperwork that he needs later today or tomorrow. The patient is able to go back to work tomorrow with appropriate restrictions of being weight-bearing in an Orthoboot and with a walker or crutches, etc as needed. We will further release him from any restrictions pending his progress in physical therapy and once he is ready to get out of the boot. Dani Clark D.P.M. (Dictated/Not Signed) Joie Job#: [id number] MTDVentura
== END 2019-05-10 14:30 ==
LOC: POD 14:00
PROVIDERS: ATTEND Podiatrist Foot & Ankle Surgery
DX: Z48.817 Encounter for surgical aftercare following surgery on the skin and subcutaneous tissue (principal)
CPT/HCPCS: 99213

== ENCOUNTER 2019-05-25 13:43 | Outpatient (CLI) | payer OTHER ==
--- NOTE | 2019-06-01 08:41 | OP Clinic Progress Note ---
DATE OF VISIT: 05/25/2019 SUBJECTIVE: Stanley Bland is a 49-year-old male presenting to the clinic today for follow up and postop care within his global period. He is status post approximately eight weeks from an Achilles tendon tear repair with detach and reattach and Nafisa's retrocalcaneal exostectomy and gastrocnemius lengthening endoscopically that was performed on March 29, 2019. The patient has been in a boot most recently and we have been lowering the amount of heel lift that he had in his boot and the heel lift was removed entirely today. The patient has also been doing physical therapy and doing some passive and now active range of motion exercises, not against gravity. The patient is doing well and denies any pain doing all these exercises. He is very happy with how he feels at this time. He has not showered yet as he has been restricted from doing so. The patient is authorized at this time to go ahead and begin showering as the incision site has completely healed and Steri-Strips were removed and everything looks beautiful. There are no holes or any openings of the incision sites at all of all three incisions. ASSESSMENT AND PLAN: The patient was given a prescription for an ankle brace that is lace-up strap-up brace that he is to use with physical therapy and he is also having a prescription sent to [facility] in [place] to encourage them to progress him to active range of motion exercises against gravity with the ankle brace. The patient also knows that in two weeks from now he may begin transitioning out of the boot into just the ankle brace and a shoe and is to do that slowly over that week, so that in three weeks from now hopefully he is just wearing the ankle brace with the shoe. The patient is happy and excited to try this. He knows that if he is feeling any pain or discomfort with the ankle brace he needs to get back in the boot. We do not need to king things, but he has had ample time to heal from what we did so far. The patient is doing great and we will have him return to clinic in three weeks for a follow-up visit. 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 Eventually we will be able to hopefully get him out of the brace unless he is doing sports activities. Dani Clark D.P.M. /[employer] [id number] /mab MTDD
== END 2019-05-25 14:15 ==
LOC: POD 13:43
PROVIDERS: ATTEND Podiatrist Foot & Ankle Surgery
DX: Z48.89 Encounter for other specified surgical aftercare (principal); Z98.890 Other specified postprocedural states
CPT/HCPCS: 99024

== ENCOUNTER 2019-06-15 13:26 | Outpatient (CLI) | payer OTHER ==
--- NOTE | 2019-06-22 20:35 | OP Clinic Progress Note ---
STANLEY BLAND JR. ADMISSION #.: [id number] : 1970 DATE OF VISIT: 06/15/2019 SUBJECTIVE: Stanley Bland is a 49-year-old male presenting to clinic today for followup and postop care within his global period. The patient had surgery on 03/29/2019 for left retrocalcaneal exostectomy with Achilles tendon detach and reattach with Achilles tendon repair with gastrocnemius recession with endoscope. The patient is doing great and states that physical therapy is going fantastic. He has completely transitioned into wearing his ankle brace at all times and a regular shoe. He is doing physical therapy with that ankle brace and states that he is feeling really good. He admits very mild pain in the back of the lower Achilles tendon insertion area when I put pressure on it today. He states that he is working both jobs again and doing great. He is unsure, as how long he should be doing physical therapy, but states it is going well and he is doing exercises such as calf exercises pushing on a platform with weights on it letting his ankle plantar flexing it. OBJECTIVE: Vitals: Temperature 97.3 degrees Fahrenheit, heart rate 76, respiration rate 16, blood pressure 156/86. O2 saturation is 96% on room air. Vascular: Palpable DP and PT pulses, left foot. Capillary refill time is less than 3 seconds to the toes of the left foot. There is no real edema noted, left foot. Dermatologic: The patient's surgical site is completely healed still and the skin is remodeling beautifully and is smooth and without any concerns of opening at this time. There is no erythema or any signs of infection noted. This is present at all surgical sites from the posterior ankle area and distal calf, left leg. Musculoskeletal: There is very mild perhaps 1/10 pain on palpation noted at the insertion of the Achilles tendon still. The patient does not have any pain with range of motion of the ankle and his ankle range of motion is to 0 if not 5 degrees dorsiflexion with the knee extended. The patient is doing well. The patient has no other pain on palpation elsewhere and is happy with how he feels. Neurologic: Light touch sensation is intact to the toes, left foot. There is no tingling or numbness that is present. ASSESSMENT AND PLAN: 1. Postop care (date of surgery 03/29/2019: Left retrocalcaneal exostectomy with Achilles tendon detach and reattach with Achilles tendon repair and left gastrocnemius recession with endoscope). 2. The patient has healed beautifully at all surgical sites. The patient is doing great with physical therapy. The patient will have the physical therapy team tomorrow send us a fax of an updated note on how he is progressing. The patient knows that in two weeks he is to give me a call and we will see if he is having any pain on the back of the heel at all with pressure at that time. If he is having pain still then we will continue the ankle brace. If he is not having pain anymore we will ask him to begin transitioning out of the ankle brace including doing some more physical therapy without the ankle brace at that time. I believe the patient is very close to being done with physical therapy and hopefully should be done in the next few weeks. We will figure out a decision on physical therapy and how much more to do and we will notify the physical therapy office once they get it to us a note about how he is doing. The patient has no further questions and is very happy with the procedure and how everything has turned out. He is happy to share the word and spread the word about how well things went. He will continue his brace in the meantime and follow instructions as we gave him. Silvia CostaP.M.(Dictated/not signed) /[employer]ut[employer] [id number] BECKA
== END 2019-06-15 14:05 ==
LOC: POD 13:26
PROVIDERS: ATTEND Podiatrist Foot & Ankle Surgery
DX: Z48.89 Encounter for other specified surgical aftercare (principal)
CPT/HCPCS: 99212

== ENCOUNTER 2019-07-13 13:44 | Outpatient (CLI) | payer OTHER ==
--- NOTE | 2019-07-24 13:50 | OP Clinic Progress Note ---
DATE OF VISIT: 07/13/2019 SUBJECTIVE: Stanley presents today for officially out of his global period from his surgery that was performed on 03/29/2019 with a left retrocalcaneal exostectomy with Achilles tendon detach and reattach with Achilles tendon repair and left gastrocnemius recession with endoscope again on 03/29/2019. The patient is here for a check up to see how he was doing. He has been doing physical therapy at [facility] in [place] and states that recently they switched him to one day a week, but he states that he is admittedly not going lately. He states that he feels he is doing great and is not having really any pain except for when weather changes he can feel it. He does not admit to any other issues. He states that he is very happy with his care and feels that he has healed and is ready to move on. Work is going well and he is only occasionally using his brace at this time. He admits one time overdoing it and feeling it a little bit and put on the brace and it got better went away and he is no longer using the brace again. He is happy with everything and does not admit to any fevers, chills, nausea, vomiting, shortness of breath or chest pain. OBJECTIVE: Vitals: Temperature 98.1 degrees Fahrenheit, heart rate 75, respiration rate 18, blood pressure 150/78. O2 saturation is 98% on room air. Vascular: Palpable DP and PT pulses, left foot. Capillary refill time is less than 3 seconds to the toes of the left foot. There is no real edema noted, left foot. Dermatologic: Surgical sites are healed well and with good skin remodeling. The skin is smooth and without any concern at all. There is no erythema or ecchymosis or signs of any infection or cellulitis noted. Musculoskeletal: There is no pain on palpation at this time at the insertion of the Achilles tendon. There is no pain with plantar flexion against resistance. There is no pain at the gastrocnemius recession site with palpation or squeezing of the calf muscle. The patient does have only about 0 degrees ankle range of motion with the knee extended and not really any improvement with the knee flexed. I worry that he may have a little bit less range of motion as he did previously. This was discussed with the patient and it was encouraged that he begin/continue calf stretches once or twice a day, as was demonstrated today. Neurologic: Light touch sensation is intact to the toes, left foot. There is no numbness present at all. This was of course checked as well today. ASSESSMENT AND PLAN: 1. Gastrocnemius equinus, left lower extremity. 2. History of retrocalcaneal exostectomy with Achilles tendon detach and reattach with Achilles tendon repair and gastrocnemius recession with endoscope performed on March 29, 2019. The patient stopped doing physical therapy at [facility] in [place] recently and states that he is doing great. He was encouraged to use his ankle brace for bigger physical activity. He otherwise has healed beautifully and is very happy with his care and states that he is bragging to his friends about the care here. He has no other concerns at this time and I encouraged him to at least let physical therapy know that he is no longer planning on coming, as long as they feel he is okay to be discharged then I am okay with that. This is what was explained to the patient today. Return to clinic as needed. The patient is out of his global period, therefore, I believe we do need to charge for this visit today. Silvia CostaP.M. (Dictated/not signed) /[employer]ut[employer] [id number] /mab MTDD
== END 2019-07-13 14:14 ==
LOC: POD 13:44
PROVIDERS: ATTEND Podiatrist Foot & Ankle Surgery
DX: M21.6X2 Other acquired deformities of left foot (principal)
CPT/HCPCS: 99213; G0463

== ENCOUNTER 2019-10-09 15:31 | Outpatient (CLI) | payer OTHER | END 2019-10-09 15:36 | LOC: LABRHC 15:31 | PROVIDERS: ATTEND Family Medicine | DX: Z12.5 Encounter for screening for malignant neoplasm of prostate (principal); E11.9 Type 2 diabetes mellitus without complications | CPT/HCPCS: 83036; 84153 ==